=== PATIENT | female | born 1955 | race Caucasian/White ===

== ENCOUNTER 2017-11-20 12:20 | Emergency (ER) | payer BC, OTHER ==
[2017-11-20 12:26] VITALS: BP 153/58; PULSE 74; TEMP 98.3; BMI 29.2
[2017-11-20] MEDS ORDERED: SODIUM CHLORIDE 1,000 ML IV STA (13:22)
--- NOTE | 2017-11-20 13:22 | PDOC ---
History of Present Illness - General Chief Complaint: Blood Sugar Problem Stated Complaint: HIGH blood sugar Time Seen by Provider: 11/20/17 13:05 - History of Present Illness Initial Comments: 11/20/17 13:57 The patient is a 62 year old female with a history of HTN, HLD, DM who presents for evaluation of high blood sugars. The patient noted measuring her blood sugars at home in the 300s over the past 2 days prompting her presentation to the ED for further evaluation. She notes that throughout this time, she has been experiencing burning pain on urination, lightheadedness, dry mouth, and nausea. She otherwise denies fevers, chills, SOB, chest pain, vomiting, abdominal pain, or changes with bowel movements. Past History - Past Medical History Allergies/Adverse Reactions: Allergies Allergy/AdvReac Type Severity Reaction Status Date / Time No Known Drug Allergies Allergy Verified 11/20/17 12:23 Home Medications: Ambulatory Orders Amlodipine Besylate 5 mg PO DAILY 03/13/16 Losartan Potassium 50 mg PO DAILY 03/13/16 Aspirin [ASA -] 81 mg PO DAILY 11/20/17 Atorvastatin Ca [Lipitor] 20 mg PO HS 11/20/17 Sitagliptin Phos/Metformin HCl [Janumet 50-500 mg Tablet] 11/20/17 COPD: No Diabetes: Yes GI Disorders: No Disorders: No HTN: Yes Hypercholesterolemia: Yes Liver Disease: No Thyroid Disease: No - Suicide/Smoking/Psychosocial Hx Smoking History: Never smoked Have you smoked in the past 12 months: No Information on smoking cessation initiated: No Hx Alcohol Use: No Drug/Substance Use Hx: No Substance Use Type: Alcohol Review of Systems - Review of Systems Comments:: 11/20/17 13:59 Constitutional: No fevers, chills, fatigue, malaise HEENT: No Rhinorrhea, nasal congestion, visual changes Cardiovascular: Lightheadedness. No chest pain, syncope, palpitations, Respiratory: No Cough, SOB, Hemoptysis, Gastrointestinal: Nausea. No Abdominal pain, Vomiting, Constipation, Diarrhea, Melena Genitourinary: Dysuria. No Frequency, Urgency, Hesitancy, Hematuria, Flank pain Musculoskeletal: No Myalgia, arthralgia Skin: No rashes, itching, bruising, pallor Neurologic: No Headache, Dizziness, Numbness, Weakness, or Tingling Psychiatric: No Hallucinations. No SI or HI *Physical Exam - Vital Signs Last Vital Signs Temp Pulse Resp BP Pulse Ox 98.3 F 74 18 153/58 100 11/20/17 12:24 11/20/17 12:24 11/20/17 12:24 11/20/17 12:24 11/20/17 12:24 - Physical Exam Comments: 11/20/17 14:00 General Appearance: Nourished. No Apparent Distress HEENT: EOMI, JILL. No Pharyngeal Erythema, Tonsillar Exudate, Tonsillar Erythema Neck: No Cervical Lymphadenopathy Respiratory/Chest: Lungs Clear, Normal Breath Sounds. No Crackles, Rales, Rhonchi, Wheezing Cardiovascular: Regular Rhythm, Regular Rate. No Murmur, Gallops, Rubs Gastrointestinal/Abdominal: Normal Bowel Sounds, Soft. No Guarding, Rebound, Tenderness Musculoskeletal: No CVA Tenderness Extremity: Normal Capillary Refill Integumentary: Normal Color, Dry, Warm Neurologic: Fully Oriented, Alert, Normal Mood/Affect, Normal Response, ED Treatment Course - LABORATORY CBC & Chemistry Diagram: 11/20/17 13:59 11/20/17 13:59 - ADDITIONAL ORDERS Additional order review: Laboratory Results 11/20/17 12:52 POC Glucometer 185.80545 11/20/17 12:52 POC Glucometer [id number] Medical Decision Making - Medical Decision Making 11/20/17 14:01 The patient is a 62 year old female with a history of HTN, HLD, DM who presents for evaluation of high blood sugars. Differential includes but is not limited to: ACS, UTI, DKA, HHS, infectious, metabolic derangement. Given the patient's history and physical exam, we will obtain a cbc, cmp, acetone, ua, chest plain film, troponin, ekg to evaluate further for possible etiologies. The patient's finger stick was 180 here in the ED and it is unlikely the patient is in DKA, but her blood sugars may be elevated to an infectious process. We will treat with iv fluids and continue to monitor and reassess while here in the ED. 11/20/17 17:28 CBC is unremarkable. CMP demonstrates elevated liver enzymes and elevated protein and calcium. The patient voiced that she wished to leave AMA prior to official US being obtained. We discussed the risks with leaving AMA including but not limited to: , permanent disability, liver damage. We discussed the benefits of staying for further evaluation. The patient continued to wish to leave AMA. The patient voiced that she would follow up with our GI specialist about her liver enzymes and stop taking her atorvastatin as that could be contributing to her symptoms. The patient signed the AMA form and her iv was removed. *DC/Admit/Observation/Transfer Diagnosis at time of Disposition: Abdominal pain Qualifiers: Abdominal location: unspecified location Qualified Code(s): R10.9 - Unspecified abdominal pain - Discharge Dispostion Disposition: AGAINST MEDICAL ADVICE Condition at time of disposition: Stable Decision to Admit order: No - Referrals Referrals: Dragan Cleveland MD [Primary Care Provider] - Jose Mancuso MD [Staff Physician] - - Patient Instructions Printed Discharge Instructions: DI for Hyperglycemia -- Adult Additional Instructions: Please return to the ER immediately if you have concerning or worsening symptoms including worsening abdominal pain, vomiting or high sugars. Your lab results showed elevations in your liver enzymes here in the ER as well as high calcium and protein levels. It is EXTREMELY important that you have your labs rechecked and call to schedule a follow up appointment with our GI specialist Dr. Mancuso within 1-2 days. Please discontinue your atorvastatin as well. Please call to schedule a follow up appointment with your primary care provider within 2-3 days to discuss your ER visit and further management of your symptoms. - Post Discharge Activity
--- NOTE | 2017-11-20 13:33 | PDOC ---
Attending Attestation - HPI HPI: 11/20/17 14:24 The patient is a 62 year old female, with a significant past medical history of diabetes, hypertension, and hyperlipidemia, who presents to the emergency department for evaluation of elevated blood sugars over the past 2 days. The patient reports she has been measuring her blood sugar and has noted her BG level is running in the 300s. Patient reports she has been experiencing dysuria , but no hematuria, frequency, or urgency. She reports lightheadedness, dry mouth and nausea, but denies any fever, chills, cough, headache, dizziness, vomiting, abdominal pain, or changes in bowel habits. She denies any chest pain , shortness of breath, diaphoresis, or palpitations. Allergies: NKDA - Medical Decision Making 11/20/17 14:24 Documentation prepared by Aleksander Matos, acting as biomedical engineering technologist for Matthew Peters MD. <Aleksander Matos - Last Filed: 11/20/17 14:24> - Resident Resident Name: Sonido Raman - ED Attending Attestation I have performed the following: I have examined & evaluated the patient, The case was reviewed & discussed with the resident, I agree w/resident's findings & plan, Exceptions are as noted - Physicial Exam PE: 11/20/17 14:58 Patient is awake and alert, resting comfortably, well-nourished, afebrile. Normocephalic, atraumatic PERRLA, EOMI, no scleral icterus mmm cta rrr sft, nt, nd no LEs edema - Medical Decision Making 11/20/17 14:59 62-year-old female with history of diabetes, hypertension and hyperlipidemia presents to the ER with elevated blood sugars over the past 48 hours with mild nausea and dysuria. Will rule out ACS, we'll obtain urine and urine culture to rule out UTI. Will obtain CBC and CMP to evaluate for leukocytosis and electrolyte abnormalities. Will reassess. <Matthew Peters - Last Filed: 11/20/17 14:59>
[2017-11-20 14:18] LABS: BASO % 1.3 % (0-2.0); EOS % 3.9 % (0-4.5); HEMATOCRIT 42.4 % (32.4-45.2); HEMOGLOBIN 14.2 GM/dL (10.7-15.3); LYMPH % 35.3 % (8-40); MCH 27.8 pg (25.7-33.7); MCHC 33.6 g/dl (32.0-36.0); MEAN CELL VOLUME 82.8 fl (80-96); MEAN PLT VOLUME 11.1 fl (7.5-11.1); MONO % 7.6 % (3.8-10.2); NEUT % 51.9 % (42.8-82.8); PLATELET COUNT 203 K/MM3 (134-434); RBC 5.11 M/mm3 (3.60-5.2); RDW 14.6 % (11.6-15.6)
[2017-11-20 14:29] LABS: URINE APPEARANCE SLCLOUDY; URINE BILIRUBIN NEGATIVE (<2.0 mg/dL); URINE BLOOD NEGATIVE (NEGATIVE); URINE COLOR YELLOW; URINE GLUCOSE (UA) NEGATIVE (NEGATIVE); URINE KETONE NEGATIVE (NEGATIVE); URINE LEUK ESTERASE TRACE (NEGATIVE); URINE NITRITE NEGATIVE (NEGATIVE); URINE PROTEIN NEGATIVE (NEGATIVE)
[2017-11-20 14:32] LABS: EPI CELLS FEW /HPF (FEW); URINE MUCUS RARE
[2017-11-20 14:43] LABS: ANION GAP 9 (8-16); BILIRUBIN,TOTAL 0.6 mg/dL (0.2-1.0); BLOOD UREA NITROGEN 16 mg/dL (7-18); CALCIUM 10.2 mg/dL (8.5-10.1); CHLORIDE 106 mmol/L (98-107); CO2 25 mmol/L (21-32); CREATININE 0.9 mg/dL (0.55-1.02); GLUCOSE,RANDOM 116 mg/dL (74-106); SGPT/ALT 126 U/L (12-78); SODIUM 140 mmol/L (136-145); TOT PROT 8.4 g/dl (6.4-8.2)
[2017-11-20 14:46] LABS: ALK PHOS 153 U/L (45-117)
--- NOTE | 2017-11-20 14:52 | EKG ---
Test Reason : Blood Pressure : / mmHG Vent. Rate : 065 BPM Atrial Rate : 065 BPM P-R Int : 134 ms QRS Dur : 088 ms QT Int : 432 ms P-R-T Axes : 042 026 051 degrees QTc Int : 449 ms NORMAL SINUS RHYTHM NORMAL ECG WHEN COMPARED WITH ECG OF 29-NOV-2010 11:03, NO SIGNIFICANT CHANGE WAS FOUND Confirmed by CHITRA CURRIE MD ([id number]) on 11/20/2017 2:51:52 PM Referred By: Confirmed By:CHITRA CURRIE MD
[2017-11-20 14:56] LABS: ACETONE SERUM NEGATIVE (NEGATIVE)
[2017-11-20 15:01] LABS: POTASSIUM 4.2 mmol/L (3.5-5.1)
[2017-11-20 15:02] LABS: SGOT/AST 85 U/L (15-37)
--- NOTE | 2017-11-20 17:44 | PDOC ---
*Physical Exam - Vital Signs Last Vital Signs Temp Pulse Resp BP Pulse Ox 98.3 F 74 18 153/58 100 11/20/17 12:24 11/20/17 12:24 11/20/17 12:24 11/20/17 12:24 11/20/17 12:24 - Physical Exam Comments: 11/20/17 17:12 Gen: aaox3, nad heart: +s1s2 reg abd: soft, nt/nd +bs ext: no c/c/e ED Treatment Course - LABORATORY CBC & Chemistry Diagram: 11/20/17 13:59 11/20/17 13:59 - ADDITIONAL ORDERS Additional order review: Laboratory Results 11/20/17 11/20/17 11/20/17 14:19 13:59 12:52 Sodium 140 Potassium 4.2 Chloride 106 Carbon Dioxide 25 Anion Gap 9 BUN 16 Creatinine 0.9 Creat Clearance w eGFR > 60 POC Glucometer 185.29779 Random Glucose 116 H Calcium 10.2 H Total Bilirubin 0.6 AST 85 H ALT 126 H Alkaline Phosphatase 153 H Creatine Kinase 145 Troponin I < 0.02 Total Protein 8.4 H Albumin 4.0 Urine Color Yellow Urine Appearance Slcloudy Urine pH 6.0 Ur Specific [place] 1.014 Urine Protein Negative Urine Glucose (UA) Negative Urine Ketones Negative Urine Blood Negative Urine Nitrite Negative Urine Bilirubin Negative Urine Urobilinogen 2.0 H Ur Leukocyte Esterase Trace Urine WBC (Auto) 3 Urine RBC (Auto) 1 Ur Epithelial Cells Few Urine Mucus Rare Acetone, Qual Negative L 11/20/17 11/20/17 13:59 12:52 RBC 5.11 MCV 82.8 MCHC 33.6 RDW 14.6 MPV 11.1 Neutrophils % 51.9 Lymphocytes % 35.3 Monocytes % 7.6 Eosinophils % 3.9 Basophils % 1.3 POC Glucometer [id number] - Medications Given in the ED: ED Medications Discontinued Medications Generic Name Dose Route Start Last Admin Trade Name Freq PRN Reason Stop Dose Admin Sodium Chloride 1,000 mls @ 1,000 mls/hr 11/20/17 13:22 11/20/17 14:07 Normal Saline - IV 11/20/17 14:21 1,000 mls/hr ASDIR STA Administration Medical Decision Making - Medical Decision Making 11/20/17 17:13 a/p: 62yo female with elevated BG signed out by the prior attending pending RUQ u/s and cxr -cxr without acute findings pt with elevated LFT, elevated calcium and elevated protein -will need repeat labs by PMD in 1 week for follow up with elevated LFT -bedside ultrasound did not show gallbladder disease -pending official ultrasound -pt is on a statin -concern for hepatitis - poss from statin , will need follow up with PMD 11/20/17 17:14 Note: The patient insists on leaving the emergency dept and is signing out against medical advice. The patient understands the risks and complications that may result from the refusal of medical care and admission which includes and permanent disability. The patient has the mental capacity of understanding the risks of refusing care and is capable of making an informed decision. The patient was instructed to return to the emergency department should she change her mind regarding medical care or should her condition worsen. The patient signed the Against Medical Advice form. *DC/Admit/Observation/Transfer Diagnosis at time of Disposition: Abdominal pain - Discharge Dispostion Disposition: AGAINST MEDICAL ADVICE - Referrals Referrals: Dragan Cleveland MD [Primary Care Provider] - Jose Mancuso MD [Staff Physician] - - Patient Instructions Printed Discharge Instructions: DI for Hyperglycemia -- Adult Additional Instructions: Please return to the ER immediately if you have concerning or worsening symptoms including worsening abdominal pain, vomiting or high sugars. Your lab results showed elevations in your liver enzymes here in the ER as well as high calcium and protein levels. It is EXTREMELY important that you have your labs rechecked and call to schedule a follow up appointment with our GI specialist Dr. Mancuso within 1-2 days. Please discontinue your atorvastatin as well. Please call to schedule a follow up appointment with your primary care provider within 2-3 days to discuss your ER visit and further management of your symptoms. - Post Discharge Activity - Attestations Physician Attestion: 11/20/17 17:44 I, Dr. Linsey Helton, DO, attest that this document has been prepared under my direction and personally reviewed by me in its entirety. I further attest, that it accurately reflects all work, treatment, procedures and medical decision -making performed by me.
--- NOTE | 2017-11-23 07:49 | PDOC ---
Patient Follow-up (Call Back) - Post ED Follow - Up Condition at time of discharge: Stable Disposition at time of original discharge: AGAINST MEDICAL ADVICE Reason for Call Back: Abnwl. Microbiology (urine cx preliminary report shows lactose fermenting negative bacilli. Patient is on no antibiotics . Patient is a diabetic. Called and left message at [phone] to call the emergency department )
== END 2017-11-20 17:34 | disposition left against medical advice (07) ==
LOC: JER 12:20
PROC: 3E0337Z Introduction of Electrolytic and Water Balance Substance into Peripheral Vein, Percutaneous Approach (ICD-10-PCS; principal; 2017-11-20)
DX: E11.65 Type 2 diabetes mellitus with hyperglycemia (principal); Z79.84 Long term (current) use of oral hypoglycemic drugs; R10.10 Upper abdominal pain, unspecified; I10 Essential (primary) hypertension; E78.00 Pure hypercholesterolemia, unspecified
CPT/HCPCS: 36415; 71046-TC-FY; 80053; 81003; 81015; 82009; 82550; 82962; 84484; 85025; 87086; 87186; 93005; 93010; 99282-25; J7030

== ENCOUNTER 2019-12-28 08:22 | Emergency (ER) | payer BC, OTHER ==
[2019-12-28 08:26] VITALS: BMI 27.4
--- NOTE | 2019-12-28 08:38 | PDOC ---
History of Present Illness - General Chief Complaint: Cold Symptoms Stated Complaint: I FEEL LIKE I HAVE A FEVER Time Seen by Provider: 12/28/19 08:26 History Source: Patient Exam Limitations: No Limitations - History of Present Illness Initial Comments: 12/28/19 08:51 64y F hx of HTN, DM, HL, presents with complaint of subjective fever. Pt states that she has felt generally weak, subjective fever, poor apptite for the past week. States she was otherwise feeling fine without other focal symptoms including sore throat, ear pain, body aches, chest pain, back pain, abd pain, n /v, cough, sob, day, diarrhea, dysuria, freqeuency. She has actually felt better the past few days but was convvinced to come to the ED by her friends. Pt works as a cashier and waiter/waitress at [employer] but has been using frquent hand sanitizers, gloves/masks at work. She lives alone and has no other known sick contacts. PMD Dragan Cleveland Past History - Medical History Allergies/Adverse Reactions: Allergies Allergy/AdvReac Type Severity Reaction Status Date / Time No Known Drug Allergies Allergy Verified 12/28/19 08:24 Home Medications: Ambulatory Orders Amlodipine Besylate 5 mg PO DAILY 03/13/16 Losartan Potassium 50 mg PO DAILY 03/13/16 Aspirin [ASA -] 81 mg PO DAILY 11/20/17 Atorvastatin Ca [Lipitor] 20 mg PO HS 11/20/17 Sitagliptin Phos/Metformin HCl [Janumet 50-500 mg Tablet] 11/20/17 Ciprofloxacin HCl [Cipro] 500 mg PO BID #6 tablet 12/03/17 COPD: No Diabetes: Yes GI Disorders: No Disorders: No HTN: Yes Hypercholesterolemia: Yes Liver Disease: No Thyroid Disease: No - Psycho-Social/Smoking History Smoking History: Never smoked Have you smoked in the past 12 months: No - Substance Abuse Hx (Audit-C & DAST Scrn) How often the patient has a drink containing alcohol: Never Score: In Men: 4 or > Positive; In Women: 3 or > Positive: 0 Screen Result (Pos requires Nsg. Audit-10AR): Negative In the last yr the pt used illegal drug/Rx for NonMed reason: No Score: Yes response is considered Positive: 0 Screen Result (Positive result requires Nsg. DAST-10): Negative Review of Systems - Review of Systems Able to Perform ROS?: Yes Comments:: 12/28/19 08:53 Constitutional - +subjectie fever, poor appetite, no reported Chills, HEENT: no reported vision changes, sore throat Respiratory: no reported cough, sob, hemoptysis Cardiac: no reported chest pain, palpitations, light headedness, leg swelling Abd/GI: no reported abd pain, nausea, vomiting, blood per rectum, melena, diarrhea : no reported dysuria, frequency, discharge Musculskelatal - no reported back pain, joint swelling skin - no reported bruising, erythema, rash neurological: no reported headache, numbness, focal weakness, tingling, ataxia, hematologic: no reported easy bruising, easy bleeding *Physical Exam - Vital Signs Last Vital Signs Temp Pulse Resp BP Pulse Ox 98.1 F 79 17 150/81 99 12/28/19 08:23 12/28/19 08:23 12/28/19 08:23 12/28/19 08:23 12/28/19 08:23 - Physical Exam 12/28/19 08:53 GENERAL: The patient is awake, alert, and fully oriented, Nontoxic - in no acute distress. HEAD: Normocephalic, atraumatic. EYES: extraocular movements intact, sclera anicteric, conjunctiva clear. ENT: Normal voice, Moist mucous membranes. NECK: Normal range of motion, supple LUNGS: Breath sounds equal, clear to auscultation bilaterally. No wheezes, no rhonchi, no rales. HEART: Regular rate and rhythm, normal S1 and S2 without murmur, rub or gallop. ABDOMEN: Soft, nontender, No guarding, no rebound. No CVA tenderness EXTREMITIES: Normal range of motion, no edema. NEUROLOGICAL: No facial assymetry, Normal speech, PSYCH: Normal mood, normal affect. SKIN: Warm, Dry, normal turgor, ED Treatment Course - LABORATORY CBC & Chemistry Diagram: 12/28/19 09:36 12/28/19 09:36 Medical Decision Making - Medical Decision Making 12/28/19 08:54 will swab the pt for COVID and will ck a UA pt otherwise well appearing without focal symptoms without any focal findings on exam. will have pt return if sh ehas any focal complaints. 12/28/19 09:36 ua noted for proteinuria will ck a cbc, cmp to eval for renal function 12/28/19 11:45 labs reviewed noted for hyperglycemia pt given some fluids with imrovement of bgm. no signs of dka pt states she drank alot of juice prior and has not beeen good with checking her blood sugar at home. will have pt continue to check/record and fu with her PMD for further management UA suggestive of UTI will treat with abx return precautiosn were discussed I discussed the physical exam findings, ancillary test results and final diagnoses with the patient. I answered all of the patient's questions. The patient was satisfied with the care received and felt comfortable with the discharge plan and treatment plan. The patient will call their primary care physician within 24 hours to arrange follow-up and will return to the Emergency Department with any new, persistent or worsening symptoms. Discharge - Discharge Information Problems reviewed: Yes Clinical Impression/Diagnosis: Hyperglycemia Urinary tract infection Qualifiers: Urinary tract infection type: site unspecified Hematuria presence: with hematuria Qualified Code(s): N39.0 - Urinary tract infection, site not specified Condition: Improved Disposition: HOME - Admission No - Follow up/Referral Referrals: Dragan Cleveland MD [Staff Physician] - [facility] [place] [facility] [place]] - Patient Discharge Instructions Patient Printed Discharge Instructions: DI for Urinary Tract Infection (UTI), DI for Hyperglycemia -- Adult, R-[facility] COVID-19 Isolation Pr otocol Additional Instructions: Return to the emergency department immediately with ANY new, persistent or worsening symptoms. You were swabbed for COVID-19, the results will be available in 1 to 2 days, if it is positive we will give you a call. You can also give us a call after 1 or 2 days for the results. In the meantime you should isolate yourself to prevent any spread. You MUST call and follow up with your doctor in 2-3 days for further evaluation of your symptoms. Results were discussed with you. Please make sure your doctor reviews the results of your emergency evaluation. Your Emergency Department visit is not complete without a follow up with your doctor. Print Language: LUX[place]BOURGISH - Post Discharge Activity
[2019-12-28 09:44] LABS: EPITHELIAL CELLS FEW /hpf
[2019-12-28 10:18] LABS: ALBUMIN 2.8 g/dl (3.4-5.0); BILIRUBIN,TOTAL 0.5 mg/dl (0.2-1); CALCIUM 8.8 mg/dl (8.5-10); CREATININE 1.3 mg/dl (0.55-1.3); POTASSIUM 4.5 mmol/L (3.5-5.1); TOT PROT 7.7 g/dl (6.4-8.2)
[2019-12-28] MEDS ORDERED: SODIUM CHLORIDE 1,000 ML IV ONE (10:26)
[2019-12-28 10:30] LABS: BASO % 0.4 % (0-2.0); EOS % 1.4 % (0-4.5); HEMATOCRIT 32.5 % (32.4-45.2); LYMPH % 14.8 % (8-40); MCH 27.2 pg (25.7-33.7); MCHC 33.8 g/dl (32.0-36.0); MEAN CELL VOLUME 80.4 fl (80-96); MEAN PLT VOLUME 8.4 fl (7.5-11.1); MONO % 4.5 % (3.8-10.2); NEUT % 78.9 % (42.8-82.8); PLATELET COUNT 232 K/MM3 (134-434); RBC 4.04 M/mm3 (3.60-5.2); RDW 13.9 % (11.6-15.6); WHITE BLOOD COUNT 13.2 K/mm3 (4.0-10.8)
[2019-12-28 10:51] VITALS: BP 137/54; PULSE 88; TEMP 98
== END 2019-12-28 11:53 | disposition home or self-care (01) ==
LOC: FER 08:22
PROC: 3E0337Z Introduction of Electrolytic and Water Balance Substance into Peripheral Vein, Percutaneous Approach (ICD-10-PCS; principal; 2019-12-28)
DX: N39.0 Urinary tract infection, site not specified (principal)
CPT/HCPCS: 36415; 80053; 81003; 81015; 82962; 85025; 87086; 87186; 96360; 99284-25; U0003

== ENCOUNTER 2023-04-04 09:31 | Emergency (ER) | payer BC ==
[2023-04-04 10:06] VITALS: BMI 23.9
[2023-04-04] MEDS ORDERED: IBUPROFEN 600 MG TABLET (FP) PO ONE ×2 (11:02→11:15)
[2023-04-04] MEDS ORDERED: ACETAMINOPHEN 500 MG TABLET (FP) PO ONE (11:02)
[2023-04-04] MEDS ORDERED: ACETAMINOPHEN 500 MG TABLET (FP) ONE (11:15)
[2023-04-04 12:14] VITALS: BP 141/58; PULSE 81; RESP 18; TEMP 98.5
== END 2023-04-04 12:28 | disposition home or self-care (01) ==
LOC: JERFT 09:31
DX: S60.222A Contusion of left hand, initial encounter (principal); Y04.8XXA Assault by other bodily force, initial encounter
CPT/HCPCS: 73130-TC-LT-FY; 82962; 93005; 93010; 99285-25